=== PATIENT | female | born 1980 | race Caucasian/White ===

== ENCOUNTER 2023-05-16 22:18 | Emergency (ER) | payer OTHER ==
[2023-05-16 22:27] VITALS: BP 151/85; PULSE 96; RESP 18; TEMP 98.1; BMI 26.4
[2023-05-16] MEDS ORDERED: ACETAMINOPHEN 325 MG TABLET (FP) PO ONE (23:29)
[2023-05-16] MEDS ORDERED: ACETAMINOPHEN 325 MG TABLET (FP) ONE (23:45)
[2023-05-16] MEDS ORDERED: CYCLOBENZAPRINE HCL 10 MG TABLET (FP) ONE (23:45)
[2023-05-17] MEDS ORDERED: CYCLOBENZAPRINE HCL 5 MG TABLET PO ONE (23:30)
== END 2023-05-17 00:32 | disposition left against medical advice (07) ==
LOC: JER 22:18
DX: M54.2 Cervicalgia (principal); M25.511 Pain in right shoulder; S20.211A Contusion of right front wall of thorax, initial encounter; V43.52XA Car driver injured in collision with other type car in traffic accident, initial encounter; Y92.410 Unspecified street and highway as the place of occurrence of the external cause
CPT/HCPCS: 99283-25

== ENCOUNTER → 2024-10-13 | Day surgery (SDC) | payer OTHER | END | disposition home or self-care (01) | LOC: FRADUS-SUR 07:53 | PROVIDERS: ATTEND Internal Medicine Pulmonary Disease | PROC: 0HBT3ZX Excision of Right Breast, Percutaneous Approach, Diagnostic (ICD-10-PCS; principal; 2024-10-13) | DX: N60.01 Solitary cyst of right breast (principal); N60.21 Fibroadenosis of right breast; N64.89 Other specified disorders of breast; N63.10 Unspecified lump in the right breast, unspecified quadrant | CPT/HCPCS: 19083; 76642-TC-RT; 76942-TC; 77065-TC; 87899; 88305-TC; A4648 ==